=== PATIENT | female | born 1935 | race Caucasian/White ===

== ENCOUNTER 2019-08-24 10:03 | Observation (INO) | payer MEDICARE, SELFPAY ==
[2019-08-24] VITALS (15 sets, daily range): BP systolic 152–206; BP diastolic 85–135; PULSE 75–115; RESP 14–35; TEMP 36.2–36.8; O2SAT 85–97; BMI 41.3
--- NOTE | 2019-08-24 | ECHO_ITS ---
Patient Info Name: Cassie White Age: 83 years : 1935 Gender: Female Ht: 62 in Wt: 225 lbs BSA: 2.17 m2 HR: 91 bpm BP: 163 / 92 mmHg Technical Quality: Poor Exam Date: 08/24/2019 4:11 PM Exam Location: [facility] Pulmonary Exam Room: [facility] Patient Status: Inpatient Admit Date: 08/24/2019 Staff Ordering Physician: Sancho Tao MD Line Person: Spring Ibarra RCS Attending Provider: Christiano Murcia MD Exam Type: CA echo dop color flow w con Study Info Indications - afib chf Complete two-dimensional, color flow and Doppler transthoracic echocardiogram is performed with contrast to opacify the left ventricle and to improve the deliniation of the left ventricle endocardial borders. Contrast/Agitated Saline Contrast/Ag. Saline: Definity Amount: 1.00 ml Administered By: Morenita Cifuentes RN Existing IV Access: Yes IV Access Condition: patent with no signs of infiltration Reason for Poor Study: patient body habitus Summary 1. Left ventricular chamber dimension is normal. 2. Left ventricular systolic function is hyperdynamic, estimated at 65-70%. 3. Left atrial chamber dimension is moderately to severely enlarged. 4. Right atrial chamber dimension is mildly enlarged. 5. There is no aortic valve stenosis. 6. There is trace mitral valve regurgitation. 7. inferior vena cava is top normal in size but with >50% collapse upon inspiration. 8. There is no pericardial effusion. Left Ventricle Left ventricular chamber dimension is normal. Left ventricular systolic function is hyperdynamic, estimated at 65-70%. There is no increased left ventricular wall thickness. Left ventricular septal wall motion is normal. The left ventricular diastolic function is indeterminate. Right Ventricle Right ventricular chamber dimension is normal. Right ventricular systolic function is normal. Left Atria Left atrial chamber dimension is moderately to severely enlarged. Right Atria Right atrial chamber dimension is mildly enlarged. Aortic Valve The aortic valve is trileaflet. There is no aortic valve sclerosis. There is no aortic valve stenosis. There is no aortic valve regurgitation. Pulmonic Valve The pulmonic valve is normal. There is no pulmonic valve stenosis. There is no pulmonic regurgitation. Mitral Valve The mitral valve has normal leaflets. There is no mitral valve stenosis. There is trace mitral valve regurgitation. Tricuspid Valve The tricuspid valve leaflets are normal. There is no significant tricuspid valve stenosis. There is trace tricuspid valve regurgitation. Mild pulmonary hypertension, estimated pulmonary arterial systolic pressure is 40 mmHg. Pericardium/Pleural The pericardium appears normal. There is no pericardial effusion. Inferior Vena Cava inferior vena cava is top normal in size but with >50% collapse upon inspiration. Aorta The aortic root size at the sinus of Valsalva is normal. The prox ascending aorta size is normal. Left Ventricular Outflow Tract Name Value Normal LVOT 2D LVOT Diameter 2.00 cm LVOT Doppler
--- NOTE | ~2019-08-24 | XR_ITS ---
EXAMINATION: XR chest 2V DATE: 08/24/2019 11:11 INDICATION: Shortness of breath TECHNIQUE: AP and lateral views of the chest are obtained. COMPARISON: 04/24/2018 FINDINGS: There is chronic atelectasis of the lung bases. No acute airspace opacities are identified. Cardiomegaly is noted. There is no pleural effusion or pneumothorax. There is thoracic kyphosis and moderate spondylosis. IMPRESSION: 1. Stable cardiomegaly. Reviewed, dictated and finalized at location A. IMPRESSION: 1. Stable cardiomegaly.
--- NOTE | ~2019-08-24 | US_ITS ---
EXAMINATION: US venous doppler [facility] DATE: 08/25/2019 11:12 INDICATION: Lower limb swelling TECHNIQUE: Grayscale ultrasound images without and with compression and Doppler ultrasound images of the bilateral lower extremity veins were obtained. COMPARISON: None. FINDINGS: The visualized portions of right common femoral vein, profunda (deep) femoral vein, femoral vein, pop liteal vein, posterior tibial veins, peroneal veins, gastrocnemius vein and greater saphenous vein ou tflow are patent. The visualized portions of left common femoral vein, profunda femoral vein, femoral vein, popliteal v ein, posterior tibial veins, peroneal veins, gastrocnemius vein and greater saphenous vein outflow ar e patent. IMPRESSION: 1. No deep venous thrombosis in either lower limb. Reviewed, dictated and finalized at location A.
--- NOTE | ~2019-08-24 | CT_ITS ---
EXAMINATION: CTA chest PE protocol DATE: 08/24/2019 13:14 INDICATION: Shortness of breath TECHNIQUE: Computed tomography angiography (CTA) of the chest was performed with 100 mL Omnipaque-350 intravenous contrast timed to evaluate the pulmonary arteries. Coronal maximum intensity projection 3D-reconstructions were created by the technologist. The dose-length product (DLP) was 834.37 mGy-cm. Automated exposure control and iterative reconstruction technique were employed. COMPARISON: 05/12/2018 FINDINGS: Respiratory motion artifact slightly limits the examination. The pulmonary arteries are wel l-opacified. No pulmonary embolism is identified. Cardiomegaly is noted. There are airspace opacitie s and bronchial wall thickening in the lower lobes. Trace pleural effusions are present. There is no pneumothorax. Mild bilateral hilar and mediastinal lymphadenopathy is noted. There are coronary arter y calcifications. There is severe thoracic spondylosis. IMPRESSION: 1. No pulmonary embolism identified, sensitivity limited by motion artifact. 2. Cardiomegaly. 3. Airspace opacities of the lung bases, consistent with pneumonia. 4. Bilateral hilar and mediastinal lymphadenopathy, likely reactive. Reviewed, dictated and finalized at location A.
--- NOTE | 2019-08-24 10:04 | ECG_ITS ---
Measurements Intervals [place] Rate: 109 P: SC: 0 QRS: 18 QRSD: 100 T: -11 QT: 336 QTc: 453 Interpretive Statements ATRIAL FIBRILLATION WITH RAPID VENTRICULAR RESPONSE VENTRICULAR PREMATURE COMPLEX BASELINE ARTIFACT- V1-V2 ABNORMAL ECG Electronically Signed On 08-24-2019 10:38:32 CDT by Rodrigo Antoine D.O.
--- NOTE | 2019-08-24 10:31 | ED.SOB ---
HPI - SOB/Dyspnea General Chief Complaint: Shortness of Breath/Dyspnea Stated Complaint: CP Time Seen by Provider: 08/24/19 10:20 History of Present Illness HPI Narrative: 83-yo female with hypertension, hyperlipidemia, hypothyroidism, asthma, and GERD c/o shortness of breath for the past week. Additionally, leg swelling and weight gain recently. She was recently taken off of 1 of her BP medications. Prior to that time she was feeling well. No chest pain, fever. Related Data Home Medications Medication Instructions Recorded Confirmed citalopram 20 mg PO DAILY 08/24/19 08/24/19 ergocalciferol (vitamin D2) 1,250 mcg PO [id number] 08/24/19 08/24/19 [Vitamin D2] fluticasone furoate-vilanterol 1 inh INHALATION DAILY 08/24/19 08/24/19 [Breo Ellipta] furosemide 20 mg PO BID 08/24/19 08/24/19 hydralazine 50 mg PO TID 08/24/19 08/24/19 hydroxyzine HCl 10 mg PO BID PRN 08/24/19 08/24/19 ipratropium-albuterol [Combivent 1 - 2 puff INHALATION TID PRN 08/24/19 08/24/19 Respimat] levothyroxine 50 mcg PO DAILY 08/24/19 08/24/19 lisinopril 5 mg PO DAILY 08/24/19 08/24/19 pramipexole 0.5 mg PO BID PRN 08/24/19 08/24/19 simvastatin 20 mg PO HS 08/24/19 08/24/19 Allergies Allergy/AdvReac Type Severity Reaction Status Date / Time No Known Allergies Allergy Verified 08/24/19 10:27 Review of Systems Review of Systems: All systems reviewed & are unremarkable except as noted in HPI and below Constitutional: Constitutional: Denies chills, Reports fatigue and Denies fever(s) Cardiovascular: Cardiovascular: Denies chest pain Respiratory: Respiratory: Reports dyspnea and Reports wheezing Gastrointestinal: Gastrointestinal: Denies nausea and Denies vomiting [facility] Past Medical History Medical History Asthma Depression with anxiety Diastolic congestive heart failure Essential hypertension Gastroesophageal reflux disease Hyperlipidemia Osteoarthritis Restless leg syndrome Surgical History Surgical History History of appendectomy History of bilateral cataract extraction History of bilateral knee replacement History of cholecystectomy History of tonsillectomy Family History Family History Mother Congestive heart failure Father Acute myocardial infarction Social History Social History Social History: The patient is and lives in a [facility], [facility]. 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 She is a lifelong nonsmoker but does report secondhand smoke exposure. No alcohol or drug use. Her son Kerwin and [id number] Mary are her surrogate decision makers and she wishes to be a full code. Second hand tobacco smoke exposure: Yes Alcohol intake: never Substance use: never Spiritual care concerns: No Exam Const: General: healthy appearing, no acute distress and alert Nutritional Appearance: obese Orientation/consciousness: patient oriented x3 HENMT: Head: normal to inspection Neck: Neck: normal visual inspection and no lymphadenopathy Chest: Chest palpation & inspection: no tenderness Resp: Effort & Inspection: normal respiratory effort Auscultation: clear to auscultation bilaterally, no rales, no rhonchi and no wheezes Cardio: Jugular venous distension: no JVD Rate: tachycardic Rhythm: abnormal rhythm irregularly irregular Heart sounds: no murmurs GI: Inspection: non-distended GI Palp: Yes Soft to palpation and No Tenderness to palpation present (GI) Skin: General skin exam: normal color Neuro: General: patient oriented x3 and moves all extremities Speech: normal speech Extrem: General: no edema Psych: Appearance: well kempt Affect: normal affect Course Vital Signs Vital signs: Vital Signs Temperature 3
[2019-08-24 11:00] LABS: Basophils Percent Auto 0.4 % (0.2-1.2); Eosinophils Absolute Auto 0.1 K/mm3 (0-0.3); Hematocrit 38.8 % (37.0-47.0); Hemoglobin 12.4 g/dL (12.0-15.0); Immature Granulocyte Absolute 0.04 K/mm3 (0.00-0.031); Immature Granulocyte Percent A 0.5 % (0-0.5); Lymphocytes Absolute Auto 1.17 K/mm3 (0.9-3.2); Lymphocytes Percent Auto 14.9 % (18.3-44.2); Mean Corpuscular Hemoglobin 27.9 pg (26-34); Mean Corpuscular Volume 87.4 fl (80-100); Mean Platelet Volume 9.7 fl (7.4-10.4); Monocytes Absolute Auto 0.5 K/mm3 (0.1-0.6); Monocytes Percent Auto 6.4 % (2.6-8.5); Neutrophils Percent Auto 76.8 % (45.5-73.1); Platelet Count Result 249 k/mm3 (150-375); Red Blood Count 4.44 M/mm3 (4.2-5.4); Red Cell Distribution Width 17.7 % (11.5-14.5); White Blood Count 7.9 K/mm3 (4.5-10.0)
[2019-08-24 11:13] LABS: Blood Urea Nitrogen 13 mg/dL (7-17); Calcium 8.7 mg/dL (8.4-10.2); Carbon Dioxide 26 mmol/L (22-30); Chloride 103 mmol/L (98-107); Estimated CRCL calculation 49 ml/min; Estimated Glomerular Filt Rate 60; Glucose 109 mg/dL (65-105); Potassium 3.1 mmol/L (3.4-5.0); Sodium 138 mmol/L (137-145)
[2019-08-24 11:23] LABS: NT Pro B Type Natriuretic Pept 1380 PG/ML (5-100); Troponin I 0.014 ng/mL (0.000-0.034)
[2019-08-24 11:57] LABS: INR 1.3; Prothrombin Time 15.5 Seconds (11.1-14.7)
[2019-08-24 11:58] LABS: Partial Thromboplastin Time 33.8 SECONDS (22.3-36.8)
[2019-08-24 12:12] LABS: Base Excess ABG 3.2 mEq/l (+/-2.0); Fractional Inspired Oxygen 28 %; HCO3 ABG 27.3 mEq/l (22.0-26.0); Oxygen Saturation ABG 97.6 % (95.0-100.0); Oxyhemoglobin 95.4 % THb (90.0-100.0); PCO2 ABG 39.8 mmHg (35.0-45.0); PO2 ABG 95.7 mmHg (80.0-100.0); PO2 FiO2 Ratio Arterial Blood 3.42 %; Total Hemoglobin 12.6 g/dL (12.0-18.0); pH ABG 7.454 (7.350-7.450)
[2019-08-24 12:13] LABS: Device NASAL CANNULA; Site Drawn LEFT BRACHIAL
[2019-08-24] MEDS: FUROSEMIDE INJ 40 MG/4 ML VIAL 20 MG IV PUSH ×2 (12:30→17:35)
[2019-08-24 12:47] LABS: D Dimer 1.22 ug/mL (<0.48)
[2019-08-24] MEDS: IPRATROPIUM BR 0.02% INH SOLN 0.5 MG/2.5 ML VIAL INHALATION ×2 (14:44→19:03)
[2019-08-24] MEDS: ALBUTEROL SULFATE NEB 2.5 MG/0.5 ML INH 5 MG INHALATION ×2 (14:44→19:03)
--- NOTE | 2019-08-24 14:48 | PM.CNCAR ---
Assessment and Plan Assessment and plan (1) Acute diastolic congestive heart failure: Code(s): I50.31 - Acute diastolic (congestive) heart failure Status: Acute Assessment and Plan: She has acute diastolic congestive heart failure, likely due to atrial fibrillation, will control heart rate with Cardizem, agree with diuresis, will get echocardiogram to evaluate current left ventricular systolic and diastolic function (2) Atrial fibrillation with rapid ventricular response: Code(s): I48.91 - Unspecified atrial fibrillation Status: Acute Assessment and Plan: Rate is better now since she started on Cardizem, will titrate to get heart rate down, and then was switched to oral Cardizem. Will get echocardiogram to evaluate current left ventricular systolic function, and look for structural heart disease. She may need anticoagulation long-term, however for now in case she has to go for any procedure will wait on oral Xarelto until after we confirmed that she is not going for any procedure (3) Atypical chest pain: Code(s): R07.89 - Other chest pain Status: Acute Assessment and Plan: So far cardiac enzymes are negative, will continue follow-up enzymes, she needs to have further workup at later stage I her sisters has improved (4) Respiratory failure with hypoxia: Code(s): J96.91 - Respiratory failure, unspecified with hypoxia Status: Acute Assessment and Plan: Seems to be multifactorial, likely is due to diastolic congestive heart failure with atrial fibrillation, as well as COPD exacerbation. Her CT was negative for PE (5) COPD (chronic obstructive pulmonary disease): Code(s): J44.9 - Chronic obstructive pulmonary disease, unspecified Status: Acute (6) Hypertension: Code(s): I10 - Essential (primary) hypertension Status: Acute Additional Plan Thank you for allowing me to participate in this patient's care, I will be following up with you. Please do not hesitate to call me for any other inquiry History of Present Illness History of Present Illness Consult date/time: 08/24/19 14:48 83 years old lady with history of COPD, history of hypertension, came to the hospital because of worsening shortness of breath. She was in the hospital back in March since then she has been having [id number] shortness of breath was slightly progressively getting worse to the point that she has significant shortness of breath and respiratory distress this morning. Upon arrival to the hospital noted to have significant hypoxia and was in respiratory distress. Her EKG showed atrial fibrillation with ventricular response and her x-ray showed pulmonary edema her CT of the chest showed no PE but showed significant evidence of pulmonary edema versus infiltrate. She feels better since she was given IV Cardizem which slowed her heart rate down IV Lasix with good diuresis. She feels slightly better now, she had heaviness in the chest but no active chest pain. Cardiac enzymes so far negative. No known coronary disease no history of known arrhythmia according to her. She is not very active but she has significant limitation with arthritis she has significant dyspnea exertion she has [id number] orthopnea and significant leg swelling. Reason For Visit: atrial fibrillation/respiratory failure w hypoxia Review of Systems Constitutional: Constitutional: Reports difficulty sleeping, Reports fatigue, Reports lethargy and Reports weakness Cardiovascular: Cardiovascular: Reports as per HPI, Reports pedal edema and Reports leg edema Respiratory: Respiratory: Reports cough, Reports dyspnea and Reports wheezing Meds Home Medications and Allergies Home Medications Medication Instructions Recorded Confirmed Type benzonatate mg PO 08/24/19 History citalopram mg 08/24/19 History fluticasone furoate-vilanterol INHALATION 08/24/19 History [Breo Ellipta] hydralazine 08/23
--- NOTE | 2019-08-24 14:57 | PC.NURSE ---
This patient, Cassie White, was admitted to IMU Room 207-01. Patient/family oriented to hospital policies and general routines including ID bracelet, bed and alarms, visiting hours, pain management, procedures, bathroom and other care routines, personal items, smoking policy, room service/diet, and visiting hours. Valuables list has been completed. Information on how to activate the Rapid Response Team has been discussed. Patient/Family are encouraged to report perceived risks to care and to ask questions if they do not understand what they are told or what they should do.
[2019-08-24] MEDS: PERFLUTREN LIPID MICROSPHERES 1.5 ML VIAL DILUTED TO 10 ML TOTAL VOLUME IV PUSH (16:40)
--- NOTE | 2019-08-24 20:00 | PM.IMHP ---
H&P: HPI History of Present Illness Chief complaint: Shortness of breath. Narrative: Cassie White is a very pleasant 83-year-old female with hypertension, hyperlipidemia, hypothyroidism, asthma, and GERD who presented to the emergency department earlier this morning for evaluation of shortness of breath. She is known to myself as I admitted her to the hospital in March 2018 with complaints of shortness of breath. At that time her blood pressure was poorly controlled, and it was thought that her shortness of breath was likely due to a combination of that in addition to probable underlying asthma (although she has never had formal PFTs that she can recall), in addition to deconditioning. She has done well since that time. Within the past week or so, she called to have her medications refilled and was told that one of her antihypertensives was not going to be refilled (she does not recall which) as each time she was seen in the office her systolic blood pressures were around 110, and it was felt that she did not need multiple drugs to control her blood pressures. Since that time, she believes her blood pressures have been running high as she has just not been feeling right and she has been noticing some shortness of breath for the past week or so. Additionally, over the last several days she has felt that her legs are becoming progressively more edematous and she reports gaining 16 pounds in the past 1 month. She had a appointment with her chiropractor this morning, and when her son to came to pick her up he noticed that she seemed short of breath and like she was not feeling well however she declined to come to the hospital at that time. She mentioned her symptoms to the chiropractor, had her blood pressure taken which was reportedly 190/110, and she was directed to the emergency department. She was found to be in atrial fibrillation with rapid ventricular response, which is a new diagnosis for her. She was not having feelings of racing heart or palpitations in the emergency department, but did began experiencing such after being admitted to the floor. To her knowledge, she has never had similar symptoms previously and has never been diagnosed with atrial fibrillation. She tries to drink decaffeinated beverages. She denies significant alcohol use. She is on levothyroxine and believes her last TSH was within normal limits. She has not had chest pain or pleuritic pain. No recent travel or history of venous thromboembolism. Of note, the patient finished a course of amoxicillin 2 days ago for acute bronchitis, with near resolution of her symptoms. Review of Systems Review of Systems: Narrative: Twelve systems were reviewed with pertinent positives and negatives as per HPI. No fever, chills, or sweats. She was treated for acute bronchitis and finished a course of amoxicillin just 2 days ago. Her cough and feelings of malaise have since improved. She has not taken Sudafed or the like. No nausea or vomiting. She denies dysphagia and concerns for aspiration. She has no history of sleep apnea but is concerned she may have it, as she falls asleep quite easily, but only stays asleep for couple of hours before getting back up, never feeling well rested. She had a normal bowel movement today. She has been urinating quite a bit since receiving IV Lasix in the emergency department. No dysuria. Except as documented, all other systems were reviewed and are negative. [facility] Past Medical History Medical History (Updated 08/25/19 @ 00:17 by Arcelia Iraheta PA-C) Asthma Depression with anxiety Diastolic congestive heart failure Essential hypertension Gastroesophageal reflux disease Hyperlipidemia Osteoarthritis Restless leg syndrome Surgical History Surgical History (Updated 08/24/19 @ 23:51 by Arcelia Iraheta PA-C) History of appendectomy History of bilateral cataract extraction History of bilateral knee replacement History of cholecystectomy His
[2019-08-24] MEDS: ACETAMINOPHEN 325 MG TABLET 650 MG PO (21:29)
[2019-08-25] VITALS (23 sets, daily range): BP systolic 124–154; BP diastolic 67–88; PULSE 70–96; RESP 16–20; TEMP 36.1–36.8; O2SAT 91–98
[2019-08-25] MEDS: POTASSIUM CHLORIDE 20 MEQ TABLET 40 MEQ PO (00:35)
[2019-08-25] MEDS: ALBUTEROL SULFATE NEB 2.5 MG/0.5 ML INH 5 MG INHALATION ×4 (01:16→20:41)
[2019-08-25] MEDS: IPRATROPIUM BR 0.02% INH SOLN 0.5 MG/2.5 ML VIAL INHALATION ×4 (01:17→20:41)
[2019-08-25] MEDS: ACETAMINOPHEN 325 MG TABLET 650 MG PO ×2 (04:07→21:01)
[2019-08-25 05:26] LABS: Hematocrit 33.8 % (37.0-47.0); Hemoglobin 10.7 g/dL (12.0-15.0); Mean Corpuscular HGB Conc 31.7 g/dl (32-36); Mean Corpuscular Hemoglobin 28.2 pg (26-34); Mean Corpuscular Volume 88.9 fl (80-100); Mean Platelet Volume 10.4 fl (7.4-10.4); Platelet Count Result 227 k/mm3 (150-375); Red Cell Distribution Width 17.9 % (11.5-14.5); White Blood Count 8.2 K/mm3 (4.5-10.0)
[2019-08-25 05:46] LABS: Blood Urea Nitrogen 12 mg/dL (7-17); Calcium 8.5 mg/dL (8.4-10.2); Carbon Dioxide 32 mmol/L (22-30); Chloride 99 mmol/L (98-107); Estimated CRCL calculation 54 ml/min; Estimated Glomerular Filt Rate > 60; Glucose 93 mg/dL (65-105); Magnesium 1.9 mg/dL (1.6-2.3); Phosphorus 4.1 mg/dL (2.5-4.5); Potassium 2.8 mmol/L (3.4-5.0); Sodium 136 mmol/L (137-145)
[2019-08-25] MEDS: POTASSIUM CHLORIDE 20 MEQ PACKET (FOR LIQUID) 40 MEQ PO (06:36)
[2019-08-25] MEDS: ASPIRIN 325 MG ENTERIC TABLET PO (08:47)
[2019-08-25] MEDS: FUROSEMIDE INJ 40 MG/4 ML VIAL 20 MG IV PUSH ×2 (08:48→17:35)
--- NOTE | 2019-08-25 13:22 | PM.PNCARD ---
Progress Note: A&P Assessment and Plan (1) Acute diastolic congestive heart failure: Code(s): I50.31 - Acute diastolic (congestive) heart failure Status: Acute Assessment and Plan: She has acute diastolic congestive heart failure, likely due to atrial fibrillation 2D echo with normal to hyperdynamic LV function, no significant valvular disease and moderately dilated Left atrium Will continue with IV lasix at current dose 20 mg BID. Replace K Heart rate better controlled. Will d.c Cardizem drip and start PO cardizem 30 mg Q6 hours Will also start Eliquis 5 mg BID for stroke prevention (2) Atrial fibrillation with rapid ventricular response: Code(s): I48.91 - Unspecified atrial fibrillation Status: Acute Assessment and Plan: Plan as outlined above (3) Respiratory failure with hypoxia: Code(s): J96.91 - Respiratory failure, unspecified with hypoxia Status: Acute Assessment and Plan: Seems to be multifactorial, likely is due to diastolic congestive heart failure with atrial fibrillation, as well as COPD. Her CT was negative for PE Continue diuresing. She still has crackles on exam (4) COPD (chronic obstructive pulmonary disease): Code(s): J44.9 - Chronic obstructive pulmonary disease, unspecified Status: Acute (5) Hypertension: Code(s): I10 - Essential (primary) hypertension Status: Acute Assessment and Plan: Start Cardizem Additional Plan Thank you for allowing me to participate in this patient's care, I will be following up with you. Please do not hesitate to call me for any other inquiry Subjective Date/time seen: 08/25/19 13:22 Feels better compared to yesterday. Good uring output with lasix. Heart rate overall better controlled on cardizem Review of Systems Constitutional: Constitutional: Reports difficulty sleeping, Reports fatigue, Reports lethargy and Reports weakness Cardiovascular: Cardiovascular: Reports as per HPI, Reports pedal edema, Reports leg edema and Reports dyspnea Respiratory: Respiratory: Reports cough, Reports dyspnea and Reports wheezing Neurologic: Reports weakness Endocrine: Endocrine: Reports fatigue Allergic/Immunologic: Allergic/Immunologic: Reports wheezing Exam Narrative: Exam Narrative: Awake alert oriented x3 not in acute distress Neck is supple has JVD, at 10 cm, no carotid bruit Chest: Decreased breathing sound in the bases with crackles at the bases noted bilaterally Cardiovascular: Irregularly irregular rhythm, slight tachycardia 2/6 systolic murmur noted left sternal border Abdomen: Soft nontender bowel sounds positive Extremities: +1 edema noted bilaterally significant skin discoloration with venous stasis Objective Data Vital Signs Vital Signs: Vital Signs - 24 hr 08/24/19 13:57 08/24/19 14:39 08/24/19 14:47 Temperature 36.2 C L Pulse Rate 93 83 88 Respiratory Rate 14 16 22 H Blood Pressure 164/123 H 163/92 H Pulse Oximetry 96 96 08/24/19 14:48 08/24/19 16:00 08/24/19 18:00 Temperature Pulse Rate 86 75 Respiratory Rate Blood Pressure Pulse Oximetry 94 08/24/19 19:05 08/24/19 19:07 08/24/19 19:13 Temperature Pulse Rate 81 81 86 Respiratory Rate 18 18 Blood Pressure Pulse Oximetry 91 08/24/19 20:00 08/24/19 22:00 08/25/19 00:00 Temperature 36.8 C 36.5 C Pulse Rate 100 98 81 Respiratory Rate 18 16 Blood Pressure 152/85 H 142/80 H Pulse Oximetry 94 94 08/25/19 01:18 08/25/19 01:26 08/25/19 02:00 Temperature Pulse Rate 70 71 89 Respiratory Rate 18 18 Blood Pressure Pulse Oximetry 08/25/19 04:00 08/25/19 06:00 08/25/19 08:00 Temperature 36.8 C 36.4 C Pulse Rate 79 89 78 Respiratory Rate 18 18 Blood Pressure 138/77 145/81 H Pulse Oximetry 94 95 08/25/19 08:39 08/25/19 08:41 08/25/19 08:47 Temperature Pulse Rate 80 81 80 Respiratory Rate 18 18 Blood Pressure Pulse Oximetry 91
[2019-08-25] MEDS: DILTIAZEM HCL 30 MG TABLET PO ×3 (13:47→23:36)
[2019-08-25 14:44] LABS: Potassium 3.9 mmol/L (3.4-5.0)
--- NOTE | 2019-08-25 14:45 | PM.IMPN ---
Progress Note: A&P Assessment and Plan (1) Atrial fibrillation with rapid ventricular response: Code(s): I48.91 - Unspecified atrial fibrillation Status: Acute Assessment and Plan: Evident on EKG in emergency department. This is a new diagnosis for her. Her heart rate has been better controlled since initiating Cardizem. Telemetry was reviewed and heart rate was stable. Cardiology has been consulted and their input is appreciated Cardizem drip was discontinued today. Continue p.o. Cardizem 30 mg Q6H per cardiology recommendations Begin Eliquis 5 mg bid. Monitor closely for any evidence of bleeding. Continue to monitor on telemetry Plan to transition to medical floor tomorrow if heart rate remains stable (2) Diastolic congestive heart failure: Code(s): I50.30 - Unspecified diastolic (congestive) heart failure Status: Acute Assessment and Plan: She has had increased lower extremity edema and weight gain. Echo performed on 08/23 revealed hyperdynamic LV function, moderately dilated left atrium, with no significant valvular disease. CXR reveals stable cardiomegaly Continue IV Lasix at 20 mg b.i.d. Continue heart healthy diet and weight patient daily. Monitor I&O closely Apnea link tonight as she may very well have underlying sleep apnea. (3) Hypokalemia: Code(s): E87.6 - Hypokalemia Status: Acute Assessment and Plan: Potassium was critically low this morning at 2.8. She was given IV potassium replacement and upon repeat, K was 3.9. Continue to monitor potassium levels closely and replace as needed (4) Respiratory failure with hypoxia: Code(s): J96.91 - Respiratory failure, unspecified with hypoxia Status: Acute Assessment and Plan: Patient was hypoxic at presentation and short of breath. I suspect this is multifactorial given fluid overload, as well as a history of asthma and overall physical deconditioning. She is maintaining adequate oxygen saturation on 1 L supplemental O2. CTA was performed and negative for pulmonary embolism. Venous Doppler was negative for DVT. Continue oxygen as needed with goal saturation 92% or above. Wean to goal. Suspect improvement with diuresis (5) Essential hypertension: Code(s): I10 - Essential (primary) hypertension Status: Acute Assessment and Plan: Blood pressure readings were elevated upon presentationHigh as 206/135. These have improved upon and initiating Cardizem and with diuresis. Blood pressure today is 145/81 and improved to 124/67 on repeat. Continue p.o. Cardizem and IV Lasix Resume lisinopril Continue to monitor blood pressures closely (6) Pneumonia: Code(s): J18.9 - Pneumonia, unspecified organism Status: Acute Assessment and Plan: She completed a course of amoxicillin 2 days ago for bronchitis and feels much better. There are findings of pneumonia on chest x-ray, which could just be resolving pneumonia. She is afebrile and without leukocytosis. She denies cough or subjective fever or chills. Given her lack of symptoms and recent antibiotic therapy, I do not feel that antibiotics are pertinent this time. I will continue to monitor for any evidence of infection. Subjective Date/time seen: 08/25/19 14:45 Interval history: Date of service: 08/25/2019 She reports she is feeling much better today. She is no longer experiencing palpitations. Her shortness of breath has improved with oxygen. She is ambulating without difficulty and denies dyspnea on exertion. She denies chest pain. She is eating well. She is urinating without difficulty and denies dysuria hematuria. She denies abdominal pain, nausea, or vomiting. She has no other concerns. Review of Systems Review of Systems: Narrative: A 12 point review of systems was reviewed with pertinent positives and negatives as per HPI. Exam Narrative: Exam Narrative
[2019-08-25] MEDS: APIXABAN 5 MG TABLET PO (21:01)
[2019-08-26] VITALS (22 sets, daily range): BP systolic 110–151; BP diastolic 56–81; PULSE 73–112; RESP 18–20; TEMP 36.3–36.8; O2SAT 91–96
[2019-08-26] MEDS: ACETAMINOPHEN 325 MG TABLET 650 MG PO ×4 (04:41→23:09)
[2019-08-26] MEDS: DILTIAZEM HCL 30 MG TABLET PO (06:20)
[2019-08-26 08:18] LABS: Basophils Percent Auto 0.5 % (0.2-1.2); Eosinophils Absolute Auto 0.2 K/mm3 (0-0.3); Eosinophils Percent Auto 1.8 % (0-4.4); Hematocrit 36.4 % (37.0-47.0); Hemoglobin 11.2 g/dL (12.0-15.0); Immature Granulocyte Absolute 0.03 K/mm3 (0.00-0.031); Immature Granulocyte Percent A 0.4 % (0-0.5); Lymphocytes Absolute Auto 1.07 K/mm3 (0.9-3.2); Lymphocytes Percent Auto 12.9 % (18.3-44.2); Mean Corpuscular HGB Conc 30.8 g/dl (32-36); Mean Corpuscular Hemoglobin 27.7 pg (26-34); Mean Corpuscular Volume 89.9 fl (80-100); Mean Platelet Volume 9.9 fl (7.4-10.4); Monocytes Absolute Auto 0.6 K/mm3 (0.1-0.6); Monocytes Percent Auto 6.9 % (2.6-8.5); Neutrophils Absolute Auto 6.4 K/mm3 (1.3-6.7); Neutrophils Percent Auto 77.5 % (45.5-73.1); Platelet Count Result 227 k/mm3 (150-375); Red Blood Count 4.05 M/mm3 (4.2-5.4); Red Cell Distribution Width 17.9 % (11.5-14.5); White Blood Count 8.3 K/mm3 (4.5-10.0)
[2019-08-26] MEDS: APIXABAN 5 MG TABLET PO ×2 (08:24→20:17)
[2019-08-26] MEDS: FUROSEMIDE INJ 40 MG/4 ML VIAL 20 MG IV PUSH ×2 (08:25→16:58)
[2019-08-26 08:31] LABS: Alanine Aminotransferase 14 U/L (4-35); Albumin Level 3.8 g/dL (3.5-5.1); Alkaline Phosphatase 34 U/L (38-126); Aspartate Amino Transferase 28 U/L (14-36); Blood Urea Nitrogen 13 mg/dL (7-17); Calcium 8.9 mg/dL (8.4-10.2); Carbon Dioxide 34 mmol/L (22-30); Chloride 101 mmol/L (98-107); Estimated CRCL calculation 60 ml/min; Estimated Glomerular Filt Rate > 60; Glucose 99 mg/dL (65-105); Potassium 3.8 mmol/L (3.4-5.0); Sodium 138 mmol/L (137-145)
[2019-08-26] MEDS: IPRATROPIUM BR 0.02% INH SOLN 0.5 MG/2.5 ML VIAL INHALATION ×3 (08:44→20:58)
[2019-08-26] MEDS: ALBUTEROL SULFATE NEB 2.5 MG/0.5 ML INH 5 MG INHALATION ×3 (08:44→20:58)
[2019-08-26] MEDS: LEVOTHYROXINE SODIUM 50 MCG TABLET PO (10:09)
[2019-08-26] MEDS: lisinopriL 5 MG TABLET PO (10:09)
[2019-08-26] MEDS: hydrALAZINE HCL 50 MG TABLET PO ×3 (10:09→16:58)
--- NOTE | 2019-08-26 12:24 | PM.PNCARD ---
Progress Note: A&P Assessment and Plan (1) Acute diastolic congestive heart failure: Code(s): I50.31 - Acute diastolic (congestive) heart failure Status: Acute Assessment and Plan: She has acute diastolic congestive heart failure, likely due to atrial fibrillation 2D echo with normal to hyperdynamic LV function, no significant valvular disease and moderately dilated Left atrium Will continue with IV lasix for one more day. Switch tomorrow to 40 mg PO daily and would recommend this dose on discharge with potassium supplement Heart rate better controlled. Will change cardizem to long acting form. Will also start Eliquis 5 mg BID for stroke prevention (2) Atrial fibrillation with rapid ventricular response: Code(s): I48.91 - Unspecified atrial fibrillation Status: Acute Assessment and Plan: Plan as outlined above (3) Respiratory failure with hypoxia: Code(s): J96.91 - Respiratory failure, unspecified with hypoxia Status: Acute Assessment and Plan: Better. Weaned off oxygen via nasal cannula Seems to be multifactorial, likely is due to diastolic congestive heart failure with atrial fibrillation, as well as COPD. Her CT was negative for PE Continue IV diuresing for one more day then switch lasix to po tomorrow (4) COPD (chronic obstructive pulmonary disease): Code(s): J44.9 - Chronic obstructive pulmonary disease, unspecified Status: Acute (5) Hypertension: Code(s): I10 - Essential (primary) hypertension Status: Acute Assessment and Plan: Start Cardizem Additional Plan Thank you for allowing me to participate in this patient's care, I will be following up with you. Please do not hesitate to call me for any other inquiry Subjective Date/time seen: 08/26/19 12:24 Feels better and was weaned off oxygen via nasal cannula to room air oxygen. Leg swelling is going down tele shows A fib with HR ~ 80-90 Review of Systems Constitutional: Constitutional: Reports difficulty sleeping, Reports fatigue, Reports lethargy and Reports weakness Cardiovascular: Cardiovascular: Reports as per HPI, Reports pedal edema, Reports leg edema and Reports dyspnea Respiratory: Respiratory: Reports cough, Reports dyspnea and Reports wheezing Neurologic: Reports weakness Endocrine: Endocrine: Reports fatigue Allergic/Immunologic: Allergic/Immunologic: Reports wheezing Exam Narrative: Exam Narrative: Awake alert oriented x3 not in acute distress Neck is supple has JVD, at 10 cm, no carotid bruit Chest: Decreased breathing sound in the bases with crackles at the bases noted bilaterally Cardiovascular: Irregularly irregular rhythm, slight tachycardia 2/6 systolic murmur noted left sternal border Abdomen: Soft nontender bowel sounds positive Extremities: +1 edema noted bilaterally significant skin discoloration with venous stasis Objective Data Vital Signs Vital Signs: Vital Signs - 24 hr 08/25/19 13:53 08/25/19 13:58 08/25/19 14:39 Temperature Pulse Rate 88 78 81 Respiratory Rate 18 18 Blood Pressure Pulse Oximetry 08/25/19 16:00 08/25/19 18:00 08/25/19 18:51 Temperature 36.7 C 36.6 C Pulse Rate 95 96 87 Respiratory Rate 16 18 Blood Pressure 145/83 H 154/88 H Pulse Oximetry 95 98 08/25/19 20:00 08/25/19 20:41 08/25/19 20:50 Temperature Pulse Rate 84 84 82 Respiratory Rate 18 18 Blood Pressure Pulse Oximetry 91 08/25/19 22:00 08/25/19 23:35 08/26/19 00:00 Temperature 36.1 C L Pulse Rate 91 85 78 Respiratory Rate 20 Blood Pressure 138/72 Pulse Oximetry 93 08/26/19 02:00 08/26/19 04:00 08/26/19 04:47 Temperature 36.5 C Pulse Rate 87 83 79 Respiratory Rate 20 Blood Pressure 151/56 H Pulse Oximetry 95 08/26/19 06:00 08/26/19 08:00 08/26/19 08:45 Temperature 36.6 C Pulse Rate 84 112 H 80 Respiratory Rate 18 18 Blood Pressure 136/81 Pulse Oximetry 95 96
--- NOTE | 2019-08-26 16:05 | PM.IMPN ---
Progress Note: A&P Assessment and Plan (1) Atrial fibrillation with rapid ventricular response: Code(s): I48.91 - Unspecified atrial fibrillation Status: Acute Assessment and Plan: Evident on EKG in emergency department. This is a new diagnosis for her. Her heart rate has been better controlled since initiating Cardizem. Telemetry was reviewed and heart rate was stable. Cardiology has been consulted and their input is appreciated Continue p.o. Cardizem 30 mg Q6H per cardiology recommendations. Cardizem drip was discontinued 08/24. Continue Eliquis 5 mg bid. Monitor closely for any evidence of bleeding. Care coordination consult was placed for Eliquis prescription. Continue to monitor on telemetry Downgrade to IMU given stable HR. (2) Diastolic congestive heart failure: Code(s): I50.30 - Unspecified diastolic (congestive) heart failure Status: Acute Assessment and Plan: She has had increased lower extremity edema and weight gain. Echo performed on 08/23 revealed hyperdynamic LV function, moderately dilated left atrium, with no significant valvular disease. CXR reveals stable cardiomegaly Continue IV Lasix at 20 mg BID. Will transition to 40 mg PO bid with hopeful discharge tomorrow. Continue heart healthy diet and weigh patient daily. Monitor I&O closely Apnea link was performed on 08/26/19 which reveals high suspicion for pathologic sleep disorder. She will benefit from formal outpatient sleep study. (3) Hypokalemia: Code(s): E87.6 - Hypokalemia Status: Acute Assessment and Plan: Potassium was critically low at 2.8 oon 08/24. This has stabilized. Continue to monitor potassium levels closely and replace as needed (4) Respiratory failure with hypoxia: Code(s): J96.91 - Respiratory failure, unspecified with hypoxia Status: Acute Assessment and Plan: Patient was hypoxic at presentation and short of breath. I suspect this is multifactorial given fluid overload, as well as a history of asthma and overall physical deconditioning. She is maintaining adequate oxygen saturation on 1 L supplemental O2. Her SOB has improved significantly. CTA was performed and negative for pulmonary embolism. Venous Doppler was negative for DVT. Continue oxygen as needed with goal saturation 92% or above. Wean to goal. Suspect improvement with diuresis (5) Essential hypertension: Code(s): I10 - Essential (primary) hypertension Status: Acute Assessment and Plan: Blood pressure readings were elevated upon presentation as high as 206/135. These have improved upon and initiating Cardizem and with diuresis. Blood pressure today was stable at 136/81. Continue cardizem, lasix, hydralazine, and lisinopril Continue to monitor blood pressures closely (6) Pneumonia: Code(s): J18.9 - Pneumonia, unspecified organism Status: Acute Assessment and Plan: She completed a course of amoxicillin 2 days ago for bronchitis and feels much better. There are findings of pneumonia on chest x-ray, which could just be resolving pneumonia. She is afebrile and without leukocytosis. She denies cough or subjective fever or chills. Given her lack of symptoms and recent antibiotic therapy, I do not feel that antibiotics are pertinent this time. I will continue to monitor for any evidence of infection. Subjective Date/time seen: 08/26/19 16:05 Interval history: Date of service: 08/26/2019 She reports she is breathing better today. She denies SOB or orthopnea. She noted she felt a very brief flutter in her chest earlier today but it subsided quickly. She denies chest pain, dizziness, or lightheadedness. She is complaining of a mild headache that was resolved with acetaminophen. She is urinating frequently due to lasix, but denies dysuria or hematuria. She has had somewhat loose stools which is not uncommon for her. She is eating
[2019-08-27] VITALS (12 sets, daily range): BP systolic 149–151; BP diastolic 78–84; PULSE 78–104; RESP 18–20; TEMP 36.6–36.8; O2SAT 90–93
--- NOTE | 2019-08-27 00:46 | PC.NURSE ---
Recieved from IMU at 2345 via wheelchair. Oriented to Room 327. Verbalized understanding of instructions and returns demonstration of same.
[2019-08-27] MEDS: IPRATROPIUM BR 0.02% INH SOLN 0.5 MG/2.5 ML VIAL INHALATION ×3 (03:17→15:37)
[2019-08-27] MEDS: ALBUTEROL SULFATE NEB 2.5 MG/0.5 ML INH 5 MG INHALATION ×3 (03:18→15:10)
[2019-08-27] MEDS: LEVOTHYROXINE SODIUM 50 MCG TABLET PO (05:43)
[2019-08-27] MEDS: PRAMIPEXOLE 0.5 MG TABLET PO (05:46)
[2019-08-27 06:25] LABS: Basophils Percent Auto 0.6 % (0.2-1.2); Eosinophils Absolute Auto 0.2 K/mm3 (0-0.3); Eosinophils Percent Auto 2.2 % (0-4.4); Hematocrit 35.4 % (37.0-47.0); Hemoglobin 11.5 g/dL (12.0-15.0); Immature Granulocyte Absolute 0.03 K/mm3 (0.00-0.031); Immature Granulocyte Percent A 0.4 % (0-0.5); Lymphocytes Absolute Auto 1.33 K/mm3 (0.9-3.2); Lymphocytes Percent Auto 19.9 % (18.3-44.2); Mean Corpuscular HGB Conc 32.5 g/dl (32-36); Mean Corpuscular Hemoglobin 28.3 pg (26-34); Mean Corpuscular Volume 87.2 fl (80-100); Mean Platelet Volume 9.5 fl (7.4-10.4); Monocytes Absolute Auto 0.5 K/mm3 (0.1-0.6); Monocytes Percent Auto 7.8 % (2.6-8.5); Neutrophils Absolute Auto 4.6 K/mm3 (1.3-6.7); Neutrophils Percent Auto 69.1 % (45.5-73.1); Platelet Count Result 237 k/mm3 (150-375); Red Blood Count 4.06 M/mm3 (4.2-5.4); Red Cell Distribution Width 17.6 % (11.5-14.5); White Blood Count 6.7 K/mm3 (4.5-10.0)
[2019-08-27 06:31] LABS: Alanine Aminotransferase 17 U/L (4-35); Albumin Level 3.8 g/dL (3.5-5.1); Alkaline Phosphatase 42 U/L (38-126); Aspartate Amino Transferase 28 U/L (14-36); Bilirubin,Total 0.7 mg/dL (0.2-1.3); Blood Urea Nitrogen 15 mg/dL (7-17); Calcium 8.8 mg/dL (8.4-10.2); Carbon Dioxide 31 mmol/L (22-30); Chloride 100 mmol/L (98-107); Estimated CRCL calculation 53 ml/min; Estimated Glomerular Filt Rate > 60; Glucose 96 mg/dL (65-105); Potassium 3.6 mmol/L (3.4-5.0); Sodium 136 mmol/L (137-145)
[2019-08-27] MEDS: lisinopriL 5 MG TABLET PO (09:49)
--- NOTE | 2019-08-27 09:49 | PM.PNCARD ---
Progress Note: A&P Assessment and Plan (1) Essential hypertension: Code(s): I10 - Essential (primary) hypertension Status: Acute (2) Atrial fibrillation with rapid ventricular response: Code(s): I48.91 - Unspecified atrial fibrillation Status: Acute Assessment and Plan: cont cutrrent meds py is stable to be dc from cardiac standpoint Carlos [address] Dr in one week Subjective Date/time seen: 08/27/19 09:49 Pt is doing fine No complains. saturation better. eager to go home Pt was seen, d/w nurse Review of Systems Review of Systems: All systems reviewed & are unremarkable except as noted in HPI and below Constitutional: Constitutional: Reports as per HPI Eyes: Eyes: Reports as per HPI ENT: Reports system reviewed and no additional complaints, except as documented and Reports as per HPI Cardiovascular: Cardiovascular: Reports as per HPI and Reports irregular heart rhythm Respiratory: Respiratory: Reports as per HPI Gastrointestinal: Gastrointestinal: Reports as per HPI Genitourinary: Genitourinary: Reports as per HPI Musculoskeletal: Musculoskeletal: Reports as per HPI Exam Const: General: no acute distress Nutritional Appearance: well nourished Orientation/consciousness: patient oriented x3 HENMT: Head: normal to inspection and atraumatic Ears: hearing grossly normal bilaterally Face and sinus: normal facial exam Eyes: General: appearance normal, both eyes and all related structures Pupils: Equal, round and reactive pupils present EOM: EOMs intact bilaterally Neck: Neck: supple Chest: Chest palpation & inspection: normal inspection of the chest Resp: Effort & Inspection: normal respiratory effort and no respiratory distress Auscultation: clear to auscultation bilaterally Cardio: Jugular venous distension: no JVD Rate: regular rate Heart sounds: S1 normal heart sound present, S2 normal heart sound present and no murmurs Peripheral pulses: Peripheral pulses 2+ throughout GI: GI Palp: No abdominal tenderness Auscultation: normal bowel sounds Skin: General skin exam: normal color Neuro: General: patient oriented x3 Cranial nerves: Yes Equal, round and reactive pupils present Extrem: General: normal to inspection and no clubbing, cyanosis or edema Objective Data Vital Signs Vital Signs: Vital Signs - 24 hr 08/26/19 10:03 08/26/19 12:00 08/26/19 14:00 Temperature 36.5 C Pulse Rate 88 88 77 Respiratory Rate 20 Blood Pressure 137/80 Pulse Oximetry 94 05/31/20 14:16 08/26/19 14:24 08/26/19 16:00 Temperature 36.3 C L Pulse Rate 81 83 88 Respiratory Rate 18 18 Blood Pressure 141/71 H Pulse Oximetry 95 08/26/19 18:30 08/26/19 20:00 08/26/19 20:59 Temperature 36.6 C Pulse Rate 92 73 87 Respiratory Rate 18 18 Blood Pressure 110/60 Pulse Oximetry 92 08/26/19 21:02 08/26/19 21:03 08/26/19 22:00 Temperature Pulse Rate 87 80 Respiratory Rate 18 Blood Pressure Pulse Oximetry 91 08/26/19 23:45 08/27/19 00:00 08/27/19 03:15 Temperature 36.8 C Pulse Rate 90 88 78 Respiratory Rate 18 18 Blood Pressure 151/62 H Pulse Oximetry 92 08/27/19 03:20 08/27/19 04:00 08/27/19 06:00 Temperature 36.6 C Pulse Rate 78 89 86 Respiratory Rate 18 18 Blood Pressure 151/84 H Pulse Oximetry 90 08/27/19 09:31 08/27/19 09:40 Temperature Pulse Rate 78 87 Respiratory Rate 18 20 Blood Pressure Pulse Oximetry 91 Intake/Output Intake/Output: Intake & Output 08/24/19 08/25/19 08/26/19 08/27/19 23:59 23:59 23:59 23:59 Intake Total 319.1 3070 1800 350 Output Total 3400 5100 Balance 319.1 -330 -3300 350 Meds/Results Medications: Active Medications Generic Name Dose Route Start Last Admin Trade Name Cecille PRN Reason Stop Dose Admin Acetaminophen 650 mg 08/24/19 21:13 08/26/19 23:09 Tylenol Tablet PO 650 mg Q6H PRN Administration Mild Pain (1-3) or Fever Albuterol 5 m
[2019-08-27] MEDS: FUROSEMIDE INJ 40 MG/4 ML VIAL 20 MG IV PUSH (09:50)
[2019-08-27] MEDS: hydrALAZINE HCL 50 MG TABLET PO ×2 (09:50→13:34)
[2019-08-27] MEDS: APIXABAN 5 MG TABLET PO (09:51)
--- NOTE | 2019-08-27 13:34 | PM.DS ---
DS: Admitting Diagnosis Admitting Diagnosis Admitting Diagnosis: Acute diastolic (congestive) heart failure DS: Discharge Diagnosis Discharge Diagnosis (1) Atrial fibrillation with rapid ventricular response: Code(s): I48.91 - Unspecified atrial fibrillation Status: Acute Assessment and Plan: This is a new diagnosis for her, evident on EKG at presentation. She was seen in consultation by cardiology. She was initiated on IV Cardizem for rate control which controlled her heart rate well and then was transitioned to oral cardizem. She was also initiated on Eliquis for stroke prevention. We discussed risks and benefits of anticoagulation and patient was comfortable with continuing Eliquis. She will follow up with cardiology in 1 week. (2) Diastolic congestive heart failure: Code(s): I50.30 - Unspecified diastolic (congestive) heart failure Status: Acute Assessment and Plan: She presented with increased lower extremity edema and weight gain, as well as increasing SOB. BNP elevated at 1380. Echo performed on 08/23 revealed hyperdynamic LV function, moderately dilated left atrium, with no significant valvular disease. CXR with stable cardiomegaly. She was diuresed with IV lasix and transitioned to 40 mg PO Lasix which she will continue as an outpatient with 10 mEq potassium. She will repeat a potassium level in one week. Additionally, an apnea link was performed on 08/26/19 which revealed high suspicion for pathologic sleep disorder. She will benefit from formal outpatient sleep study. She was educated on maintaining a heart healthy diet and monitoring daily weights. (3) Hypokalemia: Code(s): E87.6 - Hypokalemia Status: Acute Assessment and Plan: Potassium was initially low and was repleted. She will continue 10 mEq potassium as an outpatient with Lasix. She will repeat potassium in 1 week. (4) Respiratory failure with hypoxia: Code(s): J96.91 - Respiratory failure, unspecified with hypoxia Status: Acute Assessment and Plan: Patient was hypoxic at presentation and short of breath. This was likely multifactorial given fluid overload, as well as a history of asthma and overall physical deconditioning. She initially required supplemental oxygen but was weaned to room air and her symptoms improved significantly with diuresis. Venous doppler was negative for DVT and CTA was negative for pulmonary embolism. (5) Essential hypertension: Code(s): I10 - Essential (primary) hypertension Status: Acute Assessment and Plan: Blood pressure readings were elevated upon presentation as high as 206/135. Readings improved with cardizem, diuresis and resuming antihypertensives. She will continue cardizem, lasix, hydralazine, and lisinopril. (6) Pneumonia: Code(s): J18.9 - Pneumonia, unspecified organism Status: Acute Assessment and Plan: She completed a course of amoxicillin 2 days prior to presentation for suspected bronchitis. There were findings of pneumonia on chest x-ray, which was likely evidence of resolving pneumonia. She remained afebrile and without leukocytosis, no cough, fever, or chills. Given her lack of symptoms and recent antibiotic therapy, no antibiotics were given during her stay. She was monitored closely for any evidence of infection which she did not display. (7) Hyperlipidemia: Code(s): E78.5 - Hyperlipidemia, unspecified Status: Acute Assessment and Plan: Her simvastatin was reduced from 20 mg to 10 mg, given possibility for interaction between Cardizem and statin therapy at higher doses. She will benefit from an updated lipid panel in several weeks at the discretion of her PCP. DS: Summary Hospital Course Reason for hospitalization: Shortness of breath Hospital Course: Date of admission: 08/24/2019 Date of discharge: 08/27/2019 Cassie White is a 83 year old female with a PMH significant f
== END 2019-08-27 15:00 | disposition home or self-care (01) ==
LOC: ANHED 12:44 → ANHIMU 15:31 → ANH3MEDSUR 08-27 06:28 → ANHIMU 08-27 06:28
PROVIDERS: Physician Assistant; Admitting Provider Internal Medicine; Emergency Provider Emergency Medicine; PCP Internal Medicine; Visit Provider Physician Assistant
DX: I11.0 Hypertensive heart disease with heart failure (principal); I50.31 Acute diastolic (congestive) heart failure; I48.91 Unspecified atrial fibrillation; E87.6 Hypokalemia; J18.9 Pneumonia, unspecified organism; J96.91 Respiratory failure, unspecified with hypoxia; R60.9 Edema, unspecified; E03.9 Hypothyroidism, unspecified; F41.8 Other specified anxiety disorders; J44.9 Chronic obstructive pulmonary disease, unspecified; K21.9 Gastro-esophageal reflux disease without esophagitis; Z96.653 Presence of artificial knee joint, bilateral; Z77.22 Contact with and (suspected) exposure to environmental tobacco smoke (acute) (chronic)
CPT/HCPCS: 36415; 36600; 71046; 71275; 80048; 80053; 82805; 83735; 83880; 84100; 84132; 84443; 84484; 85025; 85027; 85380; 85610; 85730; 87040; 93005; 93970; 94640; 94762; 96365; 96366; 96367; 96368; 96375; 96376; 99285; A9270; C8929; G0378; J0456; J0696; J1940; J3480; Q9957; Q9967

== ENCOUNTER 2019-09-04 14:35 | Outpatient (CLI) | payer MEDICARE, SELFPAY ==
[2019-09-04 15:02] LABS: Potassium 3.6 mmol/L (3.4-5.0)
== END 2019-09-04 14:36 | disposition home or self-care (01) ==
PROVIDERS: PCP Internal Medicine; Visit Provider Physician Assistant
DX: E87.6 Hypokalemia (principal)
CPT/HCPCS: 36415; 84132

== ENCOUNTER 2019-10-18 07:34 | Outpatient (CLI) | payer MEDICARE, SELFPAY ==
--- NOTE | 2019-10-21 13:07 | WPDSIXMINUTE ---
Six Minute Walk Six Minute Walk: The patients O2 sats started at 92% and dropped as low as 89% Total walk distance conclusion: This patient does not meet criteria for home oxygen therapy unless pulmonary hypertension is also present. Repeat if necessary in a few months
--- NOTE | 2019-10-21 13:09 | WPDPFTINT ---
PFT Interpretation PFT Interpretation: This PFT met all criteria for ATS standards and reproducibility FEV/FVC post bronchodilator 69% FEV1 87% or 1.33 liters FVC 83% or 1.92 liters TLC 94% or 4.05 liters RV 107% RV/TLC 50% DLCO 51% when adjusted for alveolar volume but not adjusted for hemoglobin Flow volume loops were normal Impression: Possible mild airflow obstruction. Moderately reduced diffusion capacity Clinical correlation is advised. Exertional hypoxia is out proportion to obstruction and hence other causes of lung disease such as ILD should be explored.
== END 2019-10-18 07:35 | disposition home or self-care (01) ==
LOC: ANHPFT 07:36
PROVIDERS: PCP Internal Medicine
DX: I50.32 Chronic diastolic (congestive) heart failure (principal)
CPT/HCPCS: 99199

== ENCOUNTER 2021-05-08 15:52 | Emergency (ER) | payer MEDICARE, SELFPAY ==
--- NOTE | 2021-05-08 16:02 | ED.EAR ---
HPI - Ear Problem General Chief complaint: Ear Stated complaint: Ear Pain Time Seen by Provider: 05/08/21 16:03 Source: patient, RN notes reviewed and old records reviewed Mode of arrival: ambulatory Limitations: no limitations History of Present Illness HPI Narrative: 85-year-old female presents to the [facility] with complaints of my ears are clogged. I am here to get them flushed out. Location: bilateral Related Data Home Medications Medication Instructions Recorded Confirmed Breo Ellipta 1 inh INHALATION DAILY 08/24/19 08/24/19 Combivent Respimat 1 - 2 puff INHALATION TID PRN 08/24/19 08/24/19 citalopram 20 mg PO DAILY 08/24/19 08/24/19 ergocalciferol (vitamin D2) 1,250 mcg PO [id number] 08/24/19 08/24/19 [Vitamin D2] hydralazine 50 mg PO TID 08/24/19 08/24/19 hydroxyzine HCl 10 mg PO BID PRN 08/24/19 08/24/19 levothyroxine 50 mcg PO DAILY 08/24/19 08/24/19 lisinopril 5 mg PO DAILY 08/24/19 08/24/19 pramipexole 0.5 mg PO BID PRN 08/24/19 08/24/19 ergocalciferol (vitamin D2) 05/08/21 montelukast mg 05/08/21 spironolactone 05/08/21 Allergies Allergy/AdvReac Type Severity Reaction Status Date / Time No Known Allergies Allergy Verified 08/24/19 10:27 Review of Systems Review of Systems: All systems reviewed & are unremarkable except as noted in HPI and below Constitutional: Constitutional: Reports no additional constitutional complaints, Denies chills and Denies fever(s) Eyes: Eyes: Reports no additional eye complaints ENT: Reports as per HPI, Denies change in voice, Denies dental pain, Denies vertigo, Denies dizziness and Denies throat swelling Comments: Ear clogged Cardiovascular: Cardiovascular: Reports no additional cardiovascular complaints, Denies chest pain and Denies dyspnea Respiratory: Respiratory: Reports no additional respiratory complaints, Denies cough and Denies dyspnea Gastrointestinal: Gastrointestinal: Reports no additional gastrointestinal complaints, Denies abdominal pain, Denies nausea and Denies vomiting Musculoskeletal: Musculoskeletal: Reports no additional musculoskeletal complaints Integumentary/Breasts: Skin/Breast: Reports system reviewed and no additional complaints, except as docu Neurologic: Reports system reviewed and no additional complaints, except as documented, Denies vertigo and Denies dizziness Psychiatric: Psychiatric: Reports no additional psychiatric complaints Allergic/Immunologic: Allergic/Immunologic: Reports no additional allergic/immunologic complaints and Denies throat swelling PMFSH Past Medical History Medical History (Updated 05/08/21 @ 16:28 by Heide Skinner) Asthma Depression with anxiety Diastolic congestive heart failure Essential hypertension Gastroesophageal reflux disease Hyperlipidemia Osteoarthritis Restless leg syndrome Surgical History Surgical History History of appendectomy History of bilateral cataract extraction History of bilateral knee replacement History of cholecystectomy History of tonsillectomy Family History Family History Mother Congestive heart failure Father Acute myocardial infarction Social History Social History Social History: The patient is and lives in a [facility], [facility]. 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 She is a lifelong nonsmoker but does report secondhand smoke exposure. No alcohol or drug use. Her son Kerwin and [id number] Mary are her surrogate decision makers and she wishes to be a full code. Second hand tobacco smoke exposure: Yes Alcohol intake: never Substance use: never Spiritual care concerns: No Comments At the time of my signature, I reviewed and agree with the nursing past medical, surgical, social, and family history. There is no relevant family history pertinent to
[2021-05-08 16:07] VITALS: BP 110/71; PULSE 96; RESP 18; TEMP 37.4; O2SAT 98
== END 2021-05-08 16:32 | disposition home or self-care (01) ==
PROVIDERS: Emergency Provider Nurse Practitioner; PCP Internal Medicine
DX: H61.23 Impacted cerumen, bilateral (principal); J45.909 Unspecified asthma, uncomplicated; K21.9 Gastro-esophageal reflux disease without esophagitis; E78.5 Hyperlipidemia, unspecified; M19.90 Unspecified osteoarthritis, unspecified site; G25.81 Restless legs syndrome; I11.0 Hypertensive heart disease with heart failure; I50.30 Unspecified diastolic (congestive) heart failure
CPT/HCPCS: 69210; 99213; A9270; G0463

== ENCOUNTER 2022-01-23 10:04 | Emergency (ER) | payer MEDICARE, SELFPAY ==
--- NOTE | ~2022-01-23 | XR_ITS ---
XR chest 2V 01/23/2022 11:05 Indication: Cough and congestion Procedure: 2 view chest Comparison: Comparison to multiple prior studies sequentially, with oldest reviewed study dated 04/24. Findings: Moderate cardiomegaly. There is atherosclerosis and ectasia of the aorta. Mild pulmonary va scular congestion. No pleural effusion or pneumothorax. No acute osseous abnormality. Impression: 1: No acute cardiopulmonary disease. 2: Stable cardiomegaly. Reviewed, dictated and finalized at location A. Impression: 1: No acute cardiopulmonary disease. 2: Stable cardiomegaly.
[2022-01-23 10:24] VITALS: BP 186/85; PULSE 106; RESP 24; TEMP 37.1; O2SAT 95
--- NOTE | 2022-01-23 10:49 | ECG_ITS ---
Measurements Intervals [place] Rate: 85 P: [place]: 0 QRS: 20 QRSD: 102 T: -16 QT: 314 QTc: 375 Interpretive Statements ATRIAL FIBRILLATION NONSPECIFIC ST & T-WAVE ABNORMALITY ABNORMAL RHYTHM ECG COMPARED TO ECG 08/24/2019 10:12:54 NO SIGNIFICANT CHANGES Electronically Signed On 01-24-2022 12:11:10 CDT by Salvatore Landa M.D.
--- NOTE | 2022-01-23 10:58 | ED.URI ---
HPI - URI/Sore Throat General Chief Complaint: Shortness of Breath/Dyspnea Stated Complaint: coughing up phlem Time Seen by Provider: 01/23/22 10:24 Source: patient Mode of arrival: ambulatory Limitations: no limitations History of Present Illness HPI Narrative: Cassie is a 86-year-old female patient presenting to the clinic today with complaints of coughing, shortness of breath with exertion, and chest congestion x2 days. She reports she is unable to bring the phlegm up. She does have a history of AFib and congestion heart failure, and asthma. States that she was around her grandkids who were sick and thinks that she became ill due to this. She denies any chest pain. SpO2 was initially 91% in the triage room however that increased to 95% when patient was resting on room air. MD elicited complaint: cough and other ( chest congestion, mild shortness of breath) Related Data Home Medications Medication Instructions Recorded Confirmed fluticasone furoate 200 1 inh inhalation DAILY 08/24/19 01/23/22 mcg-vilanterol 25 mcg/dose inhalation powder (Breo Ellipta) ipratropium 20 mcg-albuterol 100 1 - 2 puff inhalation TID PRN 08/24/19 01/23/22 mcg/actuation mist for inhalation Shortness Of Breath (Combivent Respimat) lisinopril 5 mg tablet 5 mg PO DAILY 08/24/19 01/23/22 cyanocobalamin (vitamin B-12) 1,000 mcg IM MONTHLY 11/10/21 01/23/22 1,000 mcg/mL injection solution mecobalamin (vitamin B12) 1,000 1,000 mcg PO DAILY 11/10/21 01/23/22 mcg chewable tablet ergocalciferol (vitamin D2) 1,250 50,000 unit PO WEEKLY 01/13/22 01/23/22 mcg (50,000 unit) capsule Allergies Allergy/AdvReac Type Severity Reaction Status Date / Time No Known Allergies Allergy Verified 01/13/22 11:28 Review of Systems Review of Systems: Pertinent positives per HPI. Patient denies any fever, chills, rash, headache, visual changes, dizziness, cough, shortness of breath, chest pain, palpitations, nausea, vomiting, diarrhea, constipation, abdominal pain, or any urinary issues. [facility] Past Medical History Medical History Asthma Chronic atrial fibrillation Current use of typer anticoagulation Depression with anxiety Diastolic congestive heart failure Essential hypertension Gastroesophageal reflux disease Hyperlipidemia Obesity (BMI 30-39.9) Osteoarthritis Restless leg syndrome Surgical History Surgical History History of appendectomy History of bilateral cataract extraction History of bilateral knee replacement History of cholecystectomy History of tonsillectomy Family History Family History (Reviewed 01/23/22 @ 11: by Kenneth Maynard APRN) Mother Congestive heart failure Father Acute myocardial infarction Social History Social History (Reviewed 01/23/22 @ 11: by Kenneth Maynard APRN) Social History: The patient is and lives in a [facility] in [place]. 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 She is a lifelong nonsmoker but does report secondhand smoke exposure. No alcohol or drug use. Her son Kerwin and [id number] Mary are her surrogate decision makers and she wishes to be a full code. Smoking status: Never smoker Second hand tobacco smoke exposure: Yes Alcohol intake: never Substance use: never Spiritual care concerns: No Comments At the time of my signature, I reviewed and agree with the nursing past medical, surgical, social, and family history. There is no relevant family history pertinent to the patient complaint. Exam Narrative: General: Well-developed, obese, in no apparent distress Head: Normocephalic, atraumatic Eyes: Pupils equally round and reactive to light bilaterally, EOM intact, sclera and conjunctive clear, no discharge, lids normal Ears: TMs intact and clear, ear canals clear, no drainage, g
== END 2022-01-23 11:35 | disposition home or self-care (01) ==
PROVIDERS: Emergency Provider Nurse Practitioner Family; PCP Internal Medicine
DX: R09.89 Other specified symptoms and signs involving the circulatory and respiratory systems (principal); R06.02 Shortness of breath; J06.9 Acute upper respiratory infection, unspecified; J45.909 Unspecified asthma, uncomplicated; I48.20 Chronic atrial fibrillation, unspecified; I11.0 Hypertensive heart disease with heart failure; I50.30 Unspecified diastolic (congestive) heart failure; E78.5 Hyperlipidemia, unspecified; M19.90 Unspecified osteoarthritis, unspecified site; G25.81 Restless legs syndrome; E66.9 Obesity, unspecified; Z68.35 Body mass index [BMI] 35.0-35.9, adult; Z98.42 Cataract extraction status, left eye; Z98.41 Cataract extraction status, right eye; Z96.653 Presence of artificial knee joint, bilateral
CPT/HCPCS: 71046; 87426; 87804; 93005; 99213; C9803; G0463

== ENCOUNTER 2022-01-27 11:01 | Outpatient (CLI) | payer MEDICARE, SELFPAY | END 2022-01-27 11:02 | disposition home or self-care (01) | LOC: ANHAUDIO 11:03 | PROVIDERS: PCP Internal Medicine; Visit Provider Internal Medicine | DX: H93.19 Tinnitus, unspecified ear (principal); H90.3 Sensorineural hearing loss, bilateral | CPT/HCPCS: 92557; 92567 ==

== ENCOUNTER 2022-03-05 10:51 | Outpatient (CLI) | payer MEDICARE, SELFPAY ==
[2022-03-05 19:07] LABS: Alanine Aminotransferase 15 U/L (6-35); Albumin Level 4.3 g/dL (3.5-5.1); Alkaline Phosphatase 44 U/L (38-126); Anion Gap 7 mmol/L (8-16); Aspartate Amino Transferase 37 U/L (14-36); Blood Urea Nitrogen 17 mg/dL (7-17); Calcium 8.7 mg/dL (8.4-10.2); Carbon Dioxide 30 mmol/L (22-30); Chloride 102 mmol/L (98-107); Cholesterol 148 mg/dL (0-200); Estimated Glomerular Filt Rate 60; Glucose 94 mg/dL (65-110); HDL Direct 49 mg/dL; Potassium 3.9 mmol/L (3.4-5.0); Sodium 139 mmol/L (137-145); Triglycerides 136 mg/dL (<150)
[2022-03-05 19:12] LABS: Basophils Percent Auto 0.5 % (0.2-1.2); Eosinophils Percent Auto 0.5 % (0-4.4); Hematocrit 43.4 % (37.0-47.0); Hemoglobin 13.8 g/dL (12.0-15.0); Immature Granulocyte Absolute 0.03 K/mm3 (0.00-0.031); Immature Granulocyte Percent A 0.4 % (0-0.5); Lymphocytes Absolute Auto 1.45 K/mm3 (0.9-3.2); Lymphocytes Percent Auto 17.2 % (18.3-44.2); Mean Corpuscular HGB Conc 31.8 g/dl (32-36); Mean Corpuscular Hemoglobin 30.7 pg (26-34); Mean Corpuscular Volume 96.4 fl (80-100); Monocytes Absolute Auto 0.6 K/mm3 (0.1-0.6); Monocytes Percent Auto 7.5 % (2.6-8.5); Neutrophils Absolute Auto 6.3 K/mm3 (1.3-6.7); Neutrophils Percent Auto 73.9 % (45.5-73.1); Platelet Count Result 245 k/mm3 (150-375); Red Cell Distribution Width 14.6 % (11.5-14.5); White Blood Count 8.4 K/mm3 (4.5-10.0)
[2022-03-05 19:19] LABS: LDL Cholesterol Direct 53 mg/dL
[2022-03-05 19:28] LABS: Vitamin D 25 Hydroxy 41.6 ng/mL
[2022-03-05 20:14] LABS: Folic Acid 6.1 ng/mL (2.76->20)
== END 2022-03-05 10:52 | disposition home or self-care (01) ==
LOC: ANHGOSHLAB 10:53
PROVIDERS: PCP Internal Medicine; Visit Provider Internal Medicine
DX: E87.6 Hypokalemia (principal); I10 Essential (primary) hypertension; I50.9 Heart failure, unspecified; Z13.21 Encounter for screening for nutritional disorder; Z79.01 Long term (current) use of anticoagulants
CPT/HCPCS: 36415; 80053; 80061; 82306; 82607; 82746; 85025

== ENCOUNTER 2022-05-17 11:11 | Emergency (ER) | payer MEDICARE, SELFPAY ==
[2022-05-17] VITALS (18 sets, daily range): BP systolic 104–141; BP diastolic 66–81; PULSE 74–92; RESP 15–24; TEMP 36.7; O2SAT 91–96
--- NOTE | ~2022-05-17 | XR_ITS ---
XR knee LT 3V 05/17/2022 12:04 Indication: Left knee pain after fall Procedure: 3 views left knee Comparison: No prior studies for comparison. Findings: There is a comminuted displaced fracture of the distal aspect of the left femur with dorsal -medial displacement and overriding of fracture fragments. There is approximately 50 degrees dorsal a ngulation. There is a left total knee arthroplasty. The tibia appears intact with intact prosthesis a t the tibial level. Impression: 1: Comminuted distal femoral fracture extending to the femoral prosthetic of total knee arthroplasty. There is dorsal-medial displacement and angulation. Reviewed, dictated and finalized at location B. TECHNICAL DIRECTOR Impression: 1: Comminuted distal femoral fracture extending to the femoral prosthetic of to anuj knee arthroplasty. There is dorsal-medial displacement and angulation.
--- NOTE | 2022-05-17 13:24 | ED.LOWEXIN ---
HPI - Extremity Injury (Lower) General Chief Complaint: Extremity Injury, Lower Stated Complaint: fall, knee injury Time Seen by Provider: 05/17/22 11:44 History of Present Illness HPI Narrative: Patient is an 86-year-old female who presents ER with left-sided knee pain. Was walking at her home when she caught her foot on a rug and fell onto her knee. Sudden onset pain. Has an open wound noted. No new numbness or tingling. She hit her head on a couch pillow and had no loss of consciousness. No additional pain. Related Data Home Medications Medication Instructions Recorded Confirmed lisinopril 5 mg tablet 5 mg PO DAILY 08/24/19 04/20/22 cyanocobalamin (vitamin B-12) 1,000 mcg IM MONTHLY 11/10/21 04/20/22 1,000 mcg/mL injection solution mecobalamin (vitamin B12) 1,000 1,000 mcg PO DAILY 11/10/21 04/20/22 mcg chewable tablet ergocalciferol (vitamin D2) 1,250 50,000 unit PO WEEKLY 01/13/22 04/20/22 mcg (50,000 unit) capsule Allergies Allergy/AdvReac Type Severity Reaction Status Date / Time No Known Allergies Allergy Verified 04/19/22 14:28 Review of Systems Review of Systems: All systems reviewed & are unremarkable except as noted in HPI and below Constitutional: Constitutional: Denies chills and Denies fever(s) Cardiovascular: Cardiovascular: Denies chest pain, Denies rapid heart rate and Denies radiating jaw, neck or arm pain Respiratory: Respiratory: Denies cough and Denies dyspnea Musculoskeletal: Musculoskeletal: Reports arthralgias and Reports joint swelling Neurologic: Denies focal weakness and Denies numbness [facility] Past Medical History Medical History Asthma Chronic atrial fibrillation Current use of correction anticoagulation Depression with anxiety Diastolic congestive heart failure Essential hypertension Gastroesophageal reflux disease Hyperlipidemia Obesity (BMI 30-39.9) Osteoarthritis Restless leg syndrome Surgical History Surgical History History of appendectomy History of bilateral cataract extraction History of bilateral knee replacement History of cholecystectomy History of tonsillectomy Family History Family History Mother Congestive heart failure Father Acute myocardial infarction Social History Social History Social History: The patient is and lives in a senior senior living community, [facility] in [place]. 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 She is a lifelong nonsmoker but does report secondhand smoke exposure. No alcohol or drug use. Her son Kerwin and [id number] Mary are her surrogate decision makers and she wishes to be a full code. Smoking status: Never smoker Second hand tobacco smoke exposure: Yes Alcohol intake: never Substance use: never Lack of Transportation: No Lack of Food: Sometimes True Current Housing: I Have Housing Concerned About Future Housing: No Difficulty Paying Gas/Electric Bills: YES Difficulty Paying for Meds: No Currently Unemployed: No Education: High School Diploma/GED Difficulty w/ Childcare or Family Care: No Spiritual care concerns: No Exam Narrative: GENERAL: Well-appearing, well-nourished, and in no acute distress. HEAD: Normocephalic, atraumatic. EYES: PERRL and EOMI. ENT: Mucous membranes moist. CHEST: Clear to auscultation. No respiratory distress. HEART: Irregular regular rate and rhythm. Normal peripheral pulses. ABDOMEN: Soft, nontender, nondistended. EXTREMITIES: Left lower extremity with deformity proximal to the knee with bruising over the knee and a puncture wound just superior. To the knee. Suspect open fracture but no obvious bone seen. Continuous oozing due to anticoagulation. Neuropathy in lower extremities to sharp touch decreased but still
[2022-05-17] MEDS: CELLULOSE OXIDIZED 2 x 14 INCH 1 PKT XX (13:26)
[2022-05-17] MEDS: TETANUS,DIPHTHERIA,AC PERTUSSIS ADULT (0.5 ML) BOOSTRIX IM (13:26)
[2022-05-17] MEDS: ceFAZolin 2 GM/D5W 50 ML 2 GM/50 ML BAG IVPB (13:27)
[2022-05-17 13:35] LABS: Basophils Percent Auto 0.3 % (0.2-1.2); Eosinophils Percent Auto 0.2 % (0-4.4); Hematocrit 43.5 % (37.0-47.0); Hemoglobin 14.3 g/dL (12.0-15.0); Immature Granulocyte Absolute 0.09 K/mm3 (0.00-0.031); Immature Granulocyte Percent A 0.7 % (0-0.5); Lymphocytes Absolute Auto 0.92 K/mm3 (0.9-3.2); Lymphocytes Percent Auto 7.3 % (18.3-44.2); Mean Corpuscular HGB Conc 32.9 g/dl (32-36); Mean Corpuscular Hemoglobin 31.6 pg (26-34); Mean Platelet Volume 9.8 fl (7.4-10.4); Monocytes Absolute Auto 0.7 K/mm3 (0.1-0.6); Monocytes Percent Auto 5.6 % (2.6-8.5); Neutrophils Absolute Auto 10.8 K/mm3 (1.3-6.7); Neutrophils Percent Auto 85.9 % (45.5-73.1); Platelet Count Result 225 k/mm3 (150-375); Red Blood Count 4.53 M/mm3 (4.2-5.4); Red Cell Distribution Width 13.7 % (11.5-14.5); White Blood Count 12.6 K/mm3 (4.5-10.0)
[2022-05-17 13:36] LABS: Alanine Aminotransferase 19 U/L (6-35); Albumin Level 4.5 g/dL (3.5-5.1); Alkaline Phosphatase 50 U/L (38-126); Anion Gap 7 mmol/L (8-16); Aspartate Amino Transferase 30 U/L (14-36); Bilirubin,Total 1.1 mg/dL (0.2-1.3); Blood Urea Nitrogen 18 mg/dL (7-17); Calcium 8.7 mg/dL (8.4-10.2); Carbon Dioxide 29 mmol/L (22-30); Chloride 97 mmol/L (98-107); Estimated CRCL calculation 48 ml/min; Estimated Glomerular Filt Rate > 60; Glucose 122 mg/dL (65-110); Potassium 3.7 mmol/L (3.4-5.0); Sodium 133 mmol/L (137-145)
[2022-05-17 13:44] LABS: INR 1.8; Prothrombin Time 20.1 Seconds (11.1-14.7)
[2022-05-17 13:45] LABS: Partial Thromboplastin Time 42.2 SECONDS (22.3-36.8)
== END 2022-05-17 14:15 | disposition short-term general hospital (02) ==
PROVIDERS: Emergency Provider Emergency Medicine; PCP Internal Medicine
DX: S72.492A Other fracture of lower end of left femur, initial encounter for closed fracture (principal); M97.12XA Periprosthetic fracture around internal prosthetic left knee joint, initial encounter; Z23 Encounter for immunization; I48.20 Chronic atrial fibrillation, unspecified; I50.30 Unspecified diastolic (congestive) heart failure; I11.0 Hypertensive heart disease with heart failure; J45.909 Unspecified asthma, uncomplicated; E78.5 Hyperlipidemia, unspecified; M19.90 Unspecified osteoarthritis, unspecified site; K21.9 Gastro-esophageal reflux disease without esophagitis; G25.81 Restless legs syndrome; E66.9 Obesity, unspecified; Z68.37 Body mass index [BMI] 37.0-37.9, adult; Z98.42 Cataract extraction status, left eye; Z98.41 Cataract extraction status, right eye; Z96.653 Presence of artificial knee joint, bilateral; Z77.22 Contact with and (suspected) exposure to environmental tobacco smoke (acute) (chronic); W18.09XA Striking against other object with subsequent fall, initial encounter
CPT/HCPCS: 36415; 51702; 73562; 80053; 85025; 85610; 85730; 90471; 90715; 96365; 99285; J0690

== ENCOUNTER 2022-09-27 15:16 | Outpatient (CLI) | payer MEDICARE, SELFPAY ==
--- NOTE | ~2022-09-27 | XR_ITS ---
EXAMINATION: XR chest 2V DATE: 09/27/2022 15:29 INDICATION: Shortness of breath and bilateral lower limb swelling TECHNIQUE: PA and lateral views of the chest were obtained. COMPARISON: Chest radiograph dated 01/23/2022 FINDINGS: Moderate cardiomegaly with pulmonary vascular congestion without deanne pulmonary edema. Streaky and l inear discoid atelectasis/scarring at the bilateral lung bases.. No new airspace opacities, pleural e ffusion or pneumothorax. IMPRESSION: 1. Cardiomegaly with pulmonary vascular congestion but without deanne pulmonary edema. 2. Unchanged mild streaky bibasilar atelectasis/scarring. Reviewed, dictated and finalized at location B.
== END 2022-09-27 15:17 ==
PROVIDERS: PCP Internal Medicine; Visit Provider Clinical Nurse Specialist
DX: R06.02 Shortness of breath (principal); M79.89 Other specified soft tissue disorders; I50.9 Heart failure, unspecified
CPT/HCPCS: 71046

== ENCOUNTER 2022-09-27 15:30 | Outpatient (CLI) | payer MEDICARE, SELFPAY ==
[2022-09-27 19:30] LABS: Basophils Percent Auto 0.4 % (0.2-1.2); Eosinophils Percent Auto 0.2 % (0-4.4); Hematocrit 35.4 % (37.0-47.0); Hemoglobin 11.1 g/dL (12.0-15.0); Immature Granulocyte Absolute 0.06 K/mm3 (0.00-0.031); Immature Granulocyte Percent A 0.6 % (0-0.5); Lymphocytes Percent Auto 12.6 % (18.3-44.2); Mean Corpuscular HGB Conc 31.4 g/dl (32-36); Mean Corpuscular Hemoglobin 29.2 pg (26-34); Mean Corpuscular Volume 93.2 fl (80-100); Mean Platelet Volume 9.4 fl (7.4-10.4); Monocytes Absolute Auto 0.7 K/mm3 (0.1-0.6); Monocytes Percent Auto 7.3 % (2.6-8.5); Neutrophils Absolute Auto 7.5 K/mm3 (1.3-6.7); Neutrophils Percent Auto 78.9 % (45.5-73.1); Platelet Count Result 319 k/mm3 (150-375); Red Cell Distribution Width 17.2 % (11.5-14.5); White Blood Count 9.6 K/mm3 (4.5-10.0)
[2022-09-27 21:18] LABS: Alanine Aminotransferase 14 U/L (6-35); Albumin Level 3.3 g/dL (3.5-5.1); Alkaline Phosphatase 46 U/L (38-126); Anion Gap 5 mmol/L (8-16); Aspartate Amino Transferase 22 U/L (14-36); Bilirubin,Total 1.1 mg/dL (0.2-1.3); Blood Urea Nitrogen 6 mg/dL (7-17); Calcium 8.4 mg/dL (8.4-10.2); Carbon Dioxide 36 mmol/L (22-30); Chloride 94 mmol/L (98-107); Estimated Glomerular Filt Rate > 60; Glucose 106 mg/dL (65-110); Potassium 2.7 mmol/L (3.4-5.0); Sodium 135 mmol/L (137-145)
== END 2022-09-27 15:31 | disposition home or self-care (01) ==
LOC: ANHGOSHLAB 15:32
PROVIDERS: PCP Internal Medicine; Visit Provider Clinical Nurse Specialist
DX: I50.9 Heart failure, unspecified (principal)
CPT/HCPCS: 36415; 80053; 85025

== ENCOUNTER 2022-09-30 09:48 | Outpatient (CLI) | payer MEDICARE, SELFPAY ==
[2022-09-30 10:45] LABS: Anion Gap 5 mmol/L (8-16); Blood Urea Nitrogen 6 mg/dL (7-17); Calcium 8.2 mg/dL (8.4-10.2); Carbon Dioxide 33 mmol/L (22-30); Chloride 95 mmol/L (98-107); Estimated Glomerular Filt Rate > 60; Glucose 123 mg/dL (65-110); Magnesium 1.6 mg/dL (1.6-2.3); Potassium 3.3 mmol/L (3.4-5.0); Sodium 133 mmol/L (137-145)
== END 2022-09-30 09:49 | disposition home or self-care (01) ==
PROVIDERS: PCP Internal Medicine; Visit Provider Clinical Nurse Specialist
DX: E87.6 Hypokalemia (principal)
CPT/HCPCS: 36415; 80048; 83735

== ENCOUNTER 2022-10-11 09:22 | Outpatient (CLI) | payer MEDICARE, SELFPAY ==
[2022-10-11 14:00] LABS: Anion Gap 7 mmol/L (8-16); Blood Urea Nitrogen 12 mg/dL (7-17); Calcium 8.9 mg/dL (8.4-10.2); Carbon Dioxide 32 mmol/L (22-30); Chloride 93 mmol/L (98-107); Estimated Glomerular Filt Rate 47; Glucose 95 mg/dL (65-110); NT Pro B Type Natriuretic Pept 920 pg/mL (19.9-100); Sodium 132 mmol/L (137-145)
== END 2022-10-11 09:23 | disposition home or self-care (01) ==
LOC: ANHGOSHLAB 09:24
PROVIDERS: Clinical Nurse Specialist; PCP Internal Medicine; Visit Provider Internal Medicine
DX: I50.9 Heart failure, unspecified (principal); E87.6 Hypokalemia
CPT/HCPCS: 36415; 80048; 83735; 83880

== ENCOUNTER 2022-11-06 08:37 | Outpatient (CLI) | payer MEDICARE, SELFPAY ==
--- NOTE | 2022-11-06 09:10 | ECHO_ITS ---
Patient Info Name: Cassie White Age: 87 years : 1935 Gender: Female Ht: 61 in Wt: 173 lbs BSA: 1.87 m2 HR: 97 bpm BP: 124 / 84 mmHg Heart Rhythm: Sinus Rhythm Technical Quality: Good Exam Date: 11/06/2022 9:19 AM Exam Location: [facility] Patient Status: Outpatient Admit Date: 11/06/2022 Staff Ordering Physician: Jaquan Armendariz DO Donor Relations Officer: Yuri Byrd RDCS Attending Provider: Jaquan Armendariz DO Referring Physician: Marcello HERNÁNDEZ; Exam Type: CA echo doppler color flow Study Info Indications - CHF Complete two-dimensional, color flow and Doppler transthoracic echocardiogram is performed. Summary 1. Complete two-dimensional, color flow and Doppler transthoracic echocardiogram is performed. 2. Left ventricular chamber dimension is normal. 3. Left ventricular systolic function is normal, estimated at 55-60%. 4. There is mild concentric increased left ventricular wall thickness. 5. E/e' 15 is elevated. 6. Left atrial chamber dimension is moderately enlarged. 7. Right atrial chamber dimension is mildly enlarged. 8. The aortic valve is not well visualized. 9. There is mild aortic valve sclerosis. 10. There is trace aortic valve regurgitation. 11. The mitral valve has moderately calcified annulus. 12. There is mild tricuspid valve regurgitation. 13. Mild pulmonary hypertension, estimated pulmonary arterial systolic pressure is 48 mmHg. Left Ventricle E/e' 15 is elevated. Left ventricular chamber dimension is normal. Left ventricular systolic function is normal, estimated at 55-60%. There is mild concentric increased left ventricular wall thickness. The left ventricular diastolic function is grade III diastolic dysfunction. Right Ventricle Right ventricular systolic function is normal and with normal TAPSE 2.4 cm. Right ventricular chamber dimension is normal. Left Atria Left atrial chamber dimension is moderately enlarged. Right Atria Right atrial chamber dimension is mildly enlarged. Aortic Valve There is no aortic valve stenosis based on normal gradients and velocity. The aortic valve is not well visualized. There is mild aortic valve sclerosis. There is trace aortic valve regurgitation. Pulmonic Valve There is no pulmonic regurgitation. Mitral Valve The mitral valve has moderately calcified annulus. There is no mitral valve stenosis. There is no mitral valve regurgitation. Tricuspid Valve There is mild tricuspid valve regurgitation. Mild pulmonary hypertension, estimated pulmonary arterial systolic pressure is 48 mmHg. Pericardium/Pleural There is no pericardial effusion. Inferior Vena Cava Normal inferior vena cava with >50% collapse upon inspiration consistent with normal right atrial pressure, 5 mmHg. Aorta The aortic root size at the sinus of Valsalva is normal. Left Ventricular Outflow Tract Name Value Normal LVOT Doppler LVOT Peak Gradient 3 mmHg LVOT Mean Gradient 2 mmHg LVOT VTI 20 cm LVOT VTI/AV VTI Ratio 0.7 Pulmonic Valve Name Value Normal
[2022-11-06 09:12] LABS: Anion Gap 6 mmol/L (8-16); Blood Urea Nitrogen 14 mg/dL (7-17); Calcium 8.8 mg/dL (8.4-10.2); Carbon Dioxide 30 mmol/L (22-30); Chloride 95 mmol/L (98-107); Estimated Glomerular Filt Rate > 60; Glucose 98 mg/dL (65-110); Magnesium 1.8 mg/dL (1.6-2.3); Potassium 3.9 mmol/L (3.4-5.0); Sodium 131 mmol/L (137-145)
== END 2022-11-06 08:38 | disposition home or self-care (01) ==
PROVIDERS: PCP Internal Medicine; Visit Provider Internal Medicine
DX: I50.9 Heart failure, unspecified (principal); E87.6 Hypokalemia
CPT/HCPCS: 36415; 80048; 83735; 93306

== ENCOUNTER 2023-01-25 15:20 | Outpatient (CLI) | payer MEDICARE, SELFPAY ==
[2023-01-25 19:11] LABS: Blood Urea Nitrogen 13 mg/dL (7-17); Calcium 9.3 mg/dL (8.4-10.2); Carbon Dioxide 30 mmol/L (22-30); Estimated Glomerular Filt Rate 60; Glucose 103 mg/dL (65-110); Magnesium 1.9 mg/dL (1.6-2.3)
[2023-01-25 19:15] LABS: Anion Gap 7 mmol/L (8-16); Chloride 97 mmol/L (98-107); Potassium 3.8 mmol/L (3.4-5.0); Sodium 134 mmol/L (137-145)
[2023-01-25 19:37] LABS: NT Pro B Type Natriuretic Pept 1340 pg/mL (19.9-100)
[2023-01-25 20:09] LABS: Hematocrit 37.1 % (37.0-47.0); Hemoglobin 11.5 g/dL (12.0-15.0); Mean Corpuscular Hemoglobin 28.5 pg (26-34); Mean Corpuscular Volume 92.1 fl (80-100); Mean Platelet Volume 9.9 fl (7.4-10.4); Platelet Count Result 343 k/mm3 (150-375); Red Blood Count 4.03 M/mm3 (4.2-5.4); Red Cell Distribution Width 17.1 % (11.5-14.5)
== END 2023-01-25 15:21 | disposition home or self-care (01) ==
LOC: ANHGOSHLAB 15:21
PROVIDERS: PCP Internal Medicine; Visit Provider Internal Medicine
DX: E87.6 Hypokalemia (principal); J96.91 Respiratory failure, unspecified with hypoxia; R60.0 Localized edema; Z79.01 Long term (current) use of anticoagulants
CPT/HCPCS: 36415; 80048; 83735; 83880; 84443; 85027

== ENCOUNTER 2023-08-05 14:12 | Emergency (ER) | payer MEDICARE, SELFPAY ==
--- NOTE | ~2023-08-05 | XR_ITS ---
XR chest 2V DATE: 08/05/2023 16:58 INDICATION: Shortness of breath TECHNIQUE: AP and lateral views COMPARISON: September 27, 2022 2 view chest FINDINGS: Cardiomegaly and aortic calcification, ectasia and unfolding. Moderate prominence of the superior mediastinum without any associated apparent tracheal deviation, p ossibly due to tortuous great vessels. No hilar enlargement is evident. Bilateral hyperinflation of the lungs suggesting possible obstructive airways disease. The elderly ch est however can simulate this appearance. No pulmonary consolidation, pleural effusion or pulmonary vascular congestion or pneumothorax is dete cted. Diffuse osteopenia. Probable bilateral chronic rotator cuff atrophy. IMPRESSION: Cardiomegaly and aortic atherosclerosis No active pulmonary disease Reviewed, dictated and finalized at location B.
[2023-08-05 14:14] VITALS: BP 116/75; PULSE 98; RESP 14; TEMP 36.5; O2SAT 93
[2023-08-05 16:49] LABS: Basophils Percent Auto 0.5 % (0.2-1.2); Eosinophils Absolute Auto 0.1 K/mm3 (0-0.3); Eosinophils Percent Auto 1.4 % (0-4.4); Hematocrit 34.1 % (37.0-47.0); Hemoglobin 10.6 g/dL (12.0-15.0); Immature Granulocyte Absolute 0.04 K/mm3 (0.00-0.031); Immature Granulocyte Percent A 0.5 % (0-0.5); Lymphocytes Absolute Auto 0.89 K/mm3 (0.9-3.2); Lymphocytes Percent Auto 10.1 % (18.3-44.2); Mean Corpuscular HGB Conc 31.1 g/dl (32-36); Mean Corpuscular Hemoglobin 31.1 pg (26-34); Mean Platelet Volume 9.4 fl (7.4-10.4); Monocytes Absolute Auto 0.6 K/mm3 (0.1-0.6); Neutrophils Absolute Auto 7.1 K/mm3 (1.3-6.7); Neutrophils Percent Auto 80.5 % (45.5-73.1); Platelet Count Result 297 k/mm3 (150-375); Red Blood Count 3.41 M/mm3 (4.2-5.4); Red Cell Distribution Width 14.9 % (11.5-14.5); White Blood Count 8.8 K/mm3 (4.5-10.0)
[2023-08-05 16:58] LABS: Alanine Aminotransferase 16 U/L (6-35); Albumin Level 3.3 g/dL (3.5-5.1); Alkaline Phosphatase 66 U/L (38-126); Anion Gap 8 mmol/L (4-12); Aspartate Amino Transferase 30 U/L (14-36); Bilirubin,Total 1.3 mg/dL (0.2-1.3); Blood Urea Nitrogen 16 mg/dL (7-17); Calcium 9.1 mg/dL (8.4-10.2); Carbon Dioxide 21 mmol/L (22-30); Chloride 107 mmol/L (98-107); Estimated CRCL calculation 46 ml/min; Estimated Glomerular Filt Rate > 60; Glucose 96 mg/dL (65-110); Potassium 4.8 mmol/L (3.4-5.0); Sodium 136 mmol/L (137-145)
[2023-08-05 17:07] LABS: NT Pro B Type Natriuretic Pept 3110 pg/mL (19.9-100)
[2023-08-05 17:10] VITALS: PULSE 98; O2SAT 96
[2023-08-05 18:02] VITALS: BP 144/82; PULSE 85; RESP 16; O2SAT 96
--- NOTE | 2023-08-05 18:30 | ED.GENADULT ---
HPI - General Adult General Chief complaint: Extremity Problem,Nontraumatic Stated complaint: elliot leg weeping Time Seen by Provider: 08/05/23 16:02 History of Present Illness HPI narrative: patient is an 87-year-old female who presents the ER with lower extremity edema that is weeping. Began weeping over last 24 hours. No fevers or chills or sweats. Has narrowing chronic lymphedema but has not gone to the clinic. She does not wrap her legs over compressive stockings. No chest pain or chest pressure. No shortness of breath. Patient reports she wears oxygen at home but gave away her compressor because she can not carry it so she does not wear oxygen when she leaves the house. She is accompanied by her [id number]. Related Data Home Medications Medication Instructions Recorded Confirmed mecobalamin (vitamin B12) 1,000 1,000 mcg PO DAILY 11/10/21 06/14/23 mcg chewable tablet acetaminophen 500 mg tablet 500 mg PO Q6H PRN 05/31/22 06/14/23 Allergies Allergy/AdvReac Type Severity Reaction Status Date / Time No Known Allergies Allergy Verified 06/14/23 10:42 Review of Systems Review of Systems: All systems reviewed & are unremarkable except as noted in HPI and below Constitutional: Constitutional: Reports no additional constitutional complaints ENT: Reports system reviewed and no additional complaints, except as documented Cardiovascular: Cardiovascular: Reports no additional cardiovascular complaints Respiratory: Respiratory: Reports no additional respiratory complaints Musculoskeletal: Musculoskeletal: Denies arthralgias and Denies joint swelling Comments: leg edema Neurologic: Reports system reviewed and no additional complaints, except as documented [facility] Past Medical History Medical History Asthma Atherosclerosis of aorta Chronic atrial fibrillation Chronic respiratory failure with hypoxia 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 She is a lifelong nonsmoker but does report secondhand smoke exposure. No alcohol or drug use. Her son Kerwin and [id number] Mary are her surrogate decision makers and she wishes to be a full code. Smoking status: Never smoker Second hand tobacco smoke exposure: Yes Alcohol intake: never Substance use: never Do You Feel Safe in your Home?: Yes Lack of Transportation: No Lack of Food: Sometimes True Current Housing: I Have Housing Concerned About Future Housing: No Difficulty Paying Gas/Electric Bills: YES Difficulty Paying for Meds: No Currently Unemployed: No Education: High School Diploma/GED Difficulty w/ Childcare or Family Care: No Spiritual care concerns: No Exam Narrative: GENERAL: Well-appearing, well-nourished, and in no acute distress. HEAD: Normocephalic, atraumatic. ENT: Mucous membranes moist. NECK: Supple. CHEST: Clear to auscultation. No respiratory distress. HEART: Regular rate and rhythm. Normal peripheral pulses. ABDOMEN: Soft, nontender, nondistended. EXTREMITIES: Normal range of motion. 3+ edema with weepin
[2023-08-05 19:58] VITALS: BP 152/84; PULSE 81; RESP 18; O2SAT 95
== END 2023-08-05 20:00 | disposition home or self-care (01) ==
PROVIDERS: Emergency Provider Emergency Medicine; PCP Internal Medicine
DX: R60.0 Localized edema (principal); I70.0 Atherosclerosis of aorta; I48.20 Chronic atrial fibrillation, unspecified; I50.30 Unspecified diastolic (congestive) heart failure; I11.0 Hypertensive heart disease with heart failure; I89.0 Lymphedema, not elsewhere classified; J96.11 Chronic respiratory failure with hypoxia; E78.5 Hyperlipidemia, unspecified; E66.9 Obesity, unspecified; Z68.27 Body mass index [BMI] 27.0-27.9, adult; K21.9 Gastro-esophageal reflux disease without esophagitis; G25.81 Restless legs syndrome; M19.90 Unspecified osteoarthritis, unspecified site; F41.8 Other specified anxiety disorders; Z96.653 Presence of artificial knee joint, bilateral; Z98.42 Cataract extraction status, left eye; Z98.41 Cataract extraction status, right eye; Z90.49 Acquired absence of other specified parts of digestive tract; Z77.22 Contact with and (suspected) exposure to environmental tobacco smoke (acute) (chronic); Z79.01 Long term (current) use of anticoagulants
CPT/HCPCS: 36415; 71046; 80053; 83880; 85025; 99283